=== PATIENT | female | born 1990 | race African-American/Black ===

== ENCOUNTER 2016-10-26 20:29 | Inpatient (IN) | payer OTHER ==
[~2016-10-26] VITALS: Ht 167.6 cm; Wt 117.9 kg
[2016-10-26] MEDS ORDERED: PREN-546 PO (21:40)
[2016-10-26] MEDS ORDERED: IRON65TA11 PO (21:44)
[2016-10-26] MEDS ORDERED: LACTATED RINGERS 1,000 ML IV SCH (22:29)
[2016-10-26] MEDS ORDERED: IBUPROFEN 800 MG TAB PO PRN (22:30)
[2016-10-26] MEDS ORDERED: ceFAZolin 1,000 MG VIAL ONE (22:59)
[2016-10-26] MEDS ORDERED: OXYTOCIN 20 UNITS/LR PREMIX 1,000 ML IV ONE (23:15)
[2016-10-26] MEDS ORDERED: diphenhydrAMINE 50 MG/ML VIAL ONE (23:15)
[2016-10-26] MEDS ORDERED: BUPIVACAINE-MPF 0.75% 10 ML VIAL INJ ONE (23:15)
[2016-10-26] MEDS ORDERED: OXYTOCIN 10 UNITS/ML VIAL ONE (23:16)
[2016-10-26] MEDS ORDERED: MIDAZOLAM 2 MG/2 ML VIAL ONE (23:22)
[2016-10-26] MEDS ORDERED: MORPHINE PRES FREE 10 MG/10 ML AMP IV ONE (23:23)
[2016-10-26 23:28] LABS: BASOPHILS % (AUTO) 0.7 % (0.0-2.0); EOSINOPHILS # (AUTO) 0.1 K/uL (0-0.4); EOSINOPHILS % (AUTO) 0.9 % (0.0-4.0); HEMATOCRIT 33.2 % (36-48); HEMOGLOBIN 10.6 g/dL (12.0-16.0); LYMPHOCYTES # (AUTO) 1.7 K/uL (2.5-16.5); MEAN CORPUSCULAR HEMOGLOBIN 27 pg (27-31); MEAN CORPUSCULAR HGB CONC 32 g/dL (33-37); MEAN CORPUSCULAR VOLUME 85 fL (80-94); MONOCYTES # (AUTO) 0.5 K/uL (0.8-1.0); NEUTROPHILS # (AUTO) 3.3 K/uL (1.8-7.7); NEUTROPHILS % (AUTO) 59.4 % (42.2-75.2); PLATELET COUNT (AUTO) 190 K/uL (140-450); RED BLOOD CELL COUNT(AUTO) 3.89 MIL/uL (4.20-5.40); RED CELL DISTRIBUTION WIDTH 12.6 % (11.6-13.7); WHITE BLOOD COUNT (AUTO) 5.6 K/uL (4.8-10.8)
[2016-10-26 23:43] LABS: ALBUMIN 2.3 g/dL (3.4-5.0); CALCIUM 8.5 mg/dL (8.5-10.1); CARBON DIOXIDE 21.5 mmol/L (21-32); CREATININE 0.6 mg/dL (0.6-1.3); POTASSIUM 3.5 mmol/L (3.5-5.1); TOTAL BILIRUBIN 0.4 mg/dL (0.0-1.0); TOTAL PROTEIN, SERUM 6.1 g/dL (6.4-8.2)
[2016-10-26 23:48] VITALS: BP 131/76
[2016-10-26 23:49] LABS: APPEARANCE,URINE HAZY (CLEAR); BILIRUBIN,URINE NEGATIVE (NEGATIVE); BLOOD, URINE NEGATIVE (NEGATIVE); COLOR,URINE YELLOW (YELLOW); LEUKOCYTE ESTERASE ,URINE 1+ (NEGATIVE); NITRITE, URINE NEGATIVE (NEGATIVE); PH,URINE 6.5 (5.0-9.0); PROTEIN,URINE TRACE (NEGATIVE); UGLUCOSE NEGATIVE (NEGATIVE); UROBILINOGEN,URINE 0.2 EU/dL (0.2 - 1)
[2016-10-27] MEDS ORDERED: HYDROmorphone 1 MG/ML AMP IVP PRN
[2016-10-27] MEDS ORDERED: MEPERIDINE 25 MG/ML SYR IVP PRN
[2016-10-27] MEDS ORDERED: NALBUPHINE 10 MG/ML AMP IVP PRN
[2016-10-27] MEDS ORDERED: diphenhydrAMINE 50 MG/ML VIAL IVP PRN ×2
[2016-10-27] MEDS ORDERED: NALOXONE 0.4 MG/ML VIAL IVP PRN ×3
[2016-10-27] MEDS ORDERED: ONDANSETRON 4 MG/2 ML VIAL IVP PRN ×2
[2016-10-27 00:04] LABS: BACTERIA,URINE 4+ /HPF (None Seen); RBC,URINE 0-5 /HPF (0-5); SQUAMOUS EPITHELIAL CELL,UR 20-40 /LPF (0-3 (FEW))
[2016-10-27] MEDS ORDERED: ONDANSETRON 4 MG/2 ML VIAL ONE (00:37)
[2016-10-27] MEDS: KETOROLAC 30 MG/ML VIAL IM/IVP SCH ×3 (06:19→18:06)
--- NOTE | 2016-10-27 09:05 | NUR ---
PATIENT HAS BEEN SCREENED AND CATEGORIZED LOW NUTRITION RISK. PATIENT WILL BE SEEN WITHIN 7 DAYS OF ADMISSION. 11/02/[address]
[2016-10-27] MEDS: OXYTOCIN 20 UNITS/LR PREMIX 1,000 ML IV SCH ×2 (11:17→19:52)
[2016-10-27] MEDS ORDERED: OXYTOCIN 20 UNITS/LR PREMIX 1,000 ML IV SCH (20:00)
[2016-10-27] MEDS ORDERED: TEMAZEPAM 15 MG CAP PO PRN (20:00)
[2016-10-27] MEDS ORDERED: TRIMETHOBENZAMIDE 200 MG/2 ML SYR IM PRN (20:00)
[2016-10-27] MEDS ORDERED: METHYLERGONOVINE 0.2 MG/ML AMP IM PRN (20:00)
[2016-10-27] MEDS ORDERED: oxyCODONE/APAP 5/325 MG 1 TAB TAB PO PRN (20:00)
[2016-10-27] MEDS ORDERED: MEASLES, MUMPS, AND RUBELLA 1 VIAL SQVAC PRN (20:00)
[2016-10-28] MEDS: HYDROcodone/APAP 5/325 MG 1 TAB TAB PO PRN ×4 (04:21→22:18)
[2016-10-28 06:10] LABS: BASOPHILS % (AUTO) 0.2 % (0.0-2.0); EOSINOPHILS # (AUTO) 0.1 K/uL (0-0.4); EOSINOPHILS % (AUTO) 0.9 % (0.0-4.0); HEMATOCRIT 27.1 % (36-48); LYMPHOCYTES # (AUTO) 1.7 K/uL (2.5-16.5); LYMPHOCYTES % (AUTO) 15.5 % (20.5-51.1); MEAN CORPUSCULAR HEMOGLOBIN 29 pg (27-31); MEAN CORPUSCULAR HGB CONC 33 g/dL (33-37); MEAN CORPUSCULAR VOLUME 86 fL (80-94); MONOCYTES # (AUTO) 0.9 K/uL (0.8-1.0); MONOCYTES % (AUTO) 7.9 % (1.7-9.3); NEUTROPHILS # (AUTO) 8.5 K/uL (1.8-7.7); NEUTROPHILS % (AUTO) 75.5 % (42.2-75.2); PLATELET COUNT (AUTO) 165 K/uL (140-450); RED BLOOD CELL COUNT(AUTO) 3.17 MIL/uL (4.20-5.40); WHITE BLOOD COUNT (AUTO) 11.2 K/uL (4.8-10.8)
[2016-10-28] MEDS ORDERED: BISACODYL 5 MG TABEC PO PRN (10:00)
[2016-10-28] MEDS: SIMETHICONE 80 MG TAB.CHEW PO PRN ×2 (12:21→17:33)
[2016-10-28] MEDS: IBUPROFEN 800 MG TAB PO PRN (23:23)
[2016-10-29] MEDS: IBUPROFEN 800 MG TAB PO PRN (07:49)
--- NOTE | 2016-10-29 08:43 | NUR ---
PATIENT HAS BEEN SCREENED AND CATEGORIZED LOW NUTRITION RISK. PATIENT WILL BE SEEN WITHIN 7 DAYS OF ADMISSION. 11/04/[address]
== END 2016-10-29 15:00 | disposition home or self-care (01) | DRG 540 ==
LOC: MLD 20:29 → OBSVTOIN 20:29 → MFCC 10-27 01:30
PROVIDERS: ADMIT Obstetrics & Gynecology; ATTEND Obstetrics & Gynecology
PROC: 10D00Z1 Extraction of Products of Conception, Low, Open Approach (ICD-10-PCS; principal; 2016-10-26 23:15)
DX: O32.2XX2 Maternal care for transverse and oblique lie, fetus 2 (principal); Z68.41 Body mass index [BMI] 40.0-44.9, adult; Z37.2 Twins, both liveborn; O99.214 Obesity complicating childbirth; O99.824 Streptococcus B carrier state complicating childbirth; E66.01 Morbid (severe) obesity due to excess calories; O30.043 Twin pregnancy, dichorionic/diamniotic, third trimester; O09.293 Supervision of pregnancy with other poor reproductive or obstetric history, third trimester; Z3A.37 37 weeks gestation of pregnancy; Z28.21 Immunization not carried out because of patient refusal; Z83.3 Family history of diabetes mellitus; Z82.0 Family history of epilepsy and other diseases of the nervous system; Z82.49 Family history of ischemic heart disease and other diseases of the circulatory system
CPT/HCPCS: 36415; 51702; 80053; 81001; 85025; 86592; 86886; 86900; 86901; 87086; 88307; J0690; J1200; J1885; J2250; J2270; J2405; J2590; J3490; J7060; J7120